=== PATIENT | female | born 1995 | race Caucasian/White ===

== ENCOUNTER 2020-11-05 18:32 | Emergency (ER) | payer OTHER, SELFPAY ==
--- NOTE | ~2020-11-05 | XR_ITS ---
EXAMINATION: XR LUMBOSACRAL SPINE CLINICAL INFORMATION: Left lower back pain and leg pain COMPARISON: None TECHNIQUE: Three views of the lumbosacral spine. FINDINGS: There is straightening of the lumbar spine. Disc spaces are well preserved. Vertebral heights are maintained. No fractures or listhesis is are seen. There is partial lumbarization of S1, especially on the left. XR/XR lumbar spine 2-3V IMPRESSION: Unremarkable examination aside from straightening of the lumbosacral spine.
[2020-11-05 19:06] VITALS: BP 132/90; PULSE 69; RESP 18; TEMP 36.1; O2SAT 98; BMI 20.9
[2020-11-05 20:46] VITALS: BP 140/94; PULSE 63; RESP 16; TEMP 37; O2SAT 99
--- NOTE | 2020-11-05 21:09 | ED.BACK ---
HPI - Back Pain/Injury General Chief Complaint: Extremity Problem Stated Complaint: multiple complaints Time Seen by Provider: 11/05/20 21:08 Source: patient Mode of arrival: ambulatory Limitations: no limitations History of Present Illness HPI Narrative: Patient noticed left lower back pain 3 months ago started gradually no injury pain shoots to the left thigh with some tingling sometimes no weakness no relation with bending forward get worse on hip flexion. Seen PCP and other doctors prescribed prednisone. Without much relief no history of arthritis no other joint pain no history of trauma that patient had epidural 6 months ago Related Data Previous Rx's Medication Instructions Recorded cyclobenzaprine 10 mg tablet 10 mg PO Q8H #20 tab 11/05/20 ibuprofen 600 mg tablet 600 mg PO Q6H PRN #20 tab 11/05/20 Allergies Allergy/AdvReac Type Severity Reaction Status Date / Time No Known Allergies Allergy Verified 11/05/20 19:12 Review of Systems Review of Systems: Yes all other systems are reviewed and are negative PMFSH Past Medical History Medical History Asthma Social History Social History Advance Directives: No Advance Directives Information Provided: No Patient : No Physical Exam Vital Signs: Vital Signs: Last Vital Signs Temp 98.6 F 11/05/20 20:46 Pulse 63 11/05/20 20:46 Resp 16 11/05/20 20:46 BP 140/94 H 11/05/20 20:46 Pulse Ox 99 11/05/20 20:46 Body Mass Index 20.9 Const: General: comfortable, no acute distress and well developed Orientation/consciousness: patient oriented x3 HENMT: Head: Yes normocephalic and Yes atraumatic Neck: Neck: Yes normal visual inspection, Yes full ROM and No tender Resp: Effort & Inspection: normal respiratory effort Auscultation: clear to auscultation bilaterally Cardio: Rate: regular rate Rhythm: regular rhythm GI: Inspection: Yes normal to inspection Palpation (GI): Soft to palpation and nontender : General: Yes no CVA tenderness Back/Spine/Pelvis: Back: no CVA tenderness Thoracic/Lumbar Spine: straight leg raise negative bilaterally, No thoracic spinal tenderness, No lumbar spinal tenderness and other (Left sciatic notch tenderness+) Neuro: General: patient oriented x3 and no focal motor deficits MDM - Back Pain/Injury MDM Narrative Medical decision making narrative: Patient's symptoms matching piriformis muscle syndrome. Will treat with muscle relaxant and ibuprofen lumbar x-ray negative Discharge Plan Discharge Clinical Impression: Piriformis muscle pain Patient Disposition: Home, Self-Care Instructions: Piriformis Syndrome (ED), Lower Back Exercises (ED) Additional Instructions: Take pain medication muscle relaxers and advised Do exercises like pelvic rock and abduction exercises Follow with PCP Prescriptions: New cyclobenzaprine 10 mg tablet 10 mg PO Q8H Qty: 20 RF: 0 ibuprofen 600 mg tablet 600 mg PO Q6H PRN (Reason: pain) Qty: 20 RF: 0
[2020-11-05] MEDS: traMADoL HCL 50 MG TABLET PO (21:41)
[2020-11-05] MEDS: Cyclobenzaprine HCl 10 MG TABLET PO (21:41)
== END 2020-11-05 21:44 | disposition home or self-care (01) ==
PROVIDERS: Emergency Provider Internal Medicine
DX: M79.18 Myalgia, other site (principal)
CPT/HCPCS: 72100; 99283; 99284

== ENCOUNTER 2021-10-20 21:16 | Emergency (ER) | payer OTHER, SELFPAY ==
--- NOTE | ~2021-10-20 | CT_ITS ---
EXAMINATION: CT LUMBAR SPINE WITHOUT CONTRAST CLINICAL INFORMATION: Upper leg weakness. COMPARISON: None TECHNIQUE: Multidetector CT imaging of the lumbar spine was performed without the use of intravenous contrast. Coronal and sagittal reformats are reviewed. This CT examination was performed using dose optimization techniques as appropriate, variously including the following: *Automated exposure control *Adjustment of mA and/or kV according to patient size (this includes techniques or standardized protocols for targeted exams where dose is matched to indication/reason for exam; i.e. extremities or head) *Use of iterative reconstruction technique DLP; 363 mGy-cm FINDINGS: No acute fracture or traumatic malalignment. Minimal levoconvex lumbar curvature, possibly scoliosis versus related to patient positioning. Vertebral body heights maintained. Spinal levels: T12-L1: Normal. L1-L4: Small diffuse disc bulge. No significant osseous encroachment of the central canal or neural foramina. L4-L5: Moderate broad-based posterior disc protrusion. No significant osseous encroachment of the central canal or neural foramina. L5-S1: Mild loss of disc space height associated with a posterior disc herniation, possibly with superimposed posterior central extrusion. There is at least mild bilateral neural foraminal narrowing. Paraspinal soft tissues unremarkable. Imaged viscera are unremarkable. CT/CT lumbar spine wo con IMPRESSION: * No acute fracture or traumatic malalignment. * Lumbar spondylosis with disc herniations as described. * There is at least mild bilateral foraminal narrowing at L5-S1.
[2021-10-20 22:44] VITALS: BP 132/88; PULSE 86; RESP 16; TEMP 36.6; O2SAT 96
[2021-10-21] MEDS: Acetaminophen 325 MG TABLET 975 MG PO (03:05)
[2021-10-21 03:29] LABS: Appearance Urine CLEAR; Color Urine YELLOW; Glucose Urine UA NEG (NEG); Leukocyte Esterase Urine NEG (NEG); Nitrite Urine NEG (NEG); Specific Gravity - Urine 1.015 (1.005-1.025); Urine Blood NEG (NEG); Urine Ketones 15 MG/DL (NEG); Urine Protein NEG (NEG-TRACE)
[2021-10-21 04:10] VITALS: BP 94/63; PULSE 66; RESP 18; O2SAT 98
--- NOTE | 2021-10-21 06:01 | PC.NURSE ---
I assumed nursing care of shivani upon her arrival to bed 14 from the waiting room. SHe arrives for evaluation of 2 days worth of severe L hip/L buttock pain. Shivani is alert and oriented x 3, calm and cooperative, makes eye contact with RN. At times she is tearful due to the severity of the left hip pain that she presents with. Respirations are non-labored, RR WNL, room air sat's WNL, she speaks in full sentences, no cyanosis. No nausea. No vomiting. No changes in her bowel or bladder patterns. On arrival pt was tearful due to pain. I administered 975mg PO Tylenol per request Dr. Sánchez. The pt was able to sleep after taking Tylenol but has since woken with c/o increasing L hip pain. She denies any injury, denies any Hx of similar pain, denies any deformity or rash or bruise or discoloration to L hip. Shivani ambulated to the bathroom with an obvious limp, but was steady. She continue to await initial MD avila.
--- NOTE | 2021-10-21 06:25 | ED.GENADULT ---
HPI - General Adult General Chief complaint: Extremity Problem Stated complaint: pain in kidney, trouble standing Time Seen by Provider: 10/21/21 06:19 Source: patient Mode of arrival: ambulatory Limitations: no limitations History of Present Illness HPI narrative: Patient comes to the emergency room complaining of acute on chronic left leg pain. Patient states that she was recently seen at [facility], was diagnosed with fluid in the kidney via ultrasound, then patient followed up at [facility] for left lower quadrant pain, an ultrasound was repeated and the ultrasound was negative. Patient states that she was discharged home yesterday, since then she has been having acute on chronic left-sided hip pain that radiates towards the back of the leg. Patient has been seen in the past approximately a year ago for the same issue. Patient states that her PCP has recommended physical therapy but patient has missed all of the appointments. Patient denies abdominal pain, no numbness or tingling in the line. Patient able to ambulate. Patient denies urinary/fecal incontinence or retention. Related Data Previous Rx's Medication Instructions Recorded cyclobenzaprine 10 mg tablet 10 mg PO Q8H #20 tabs 11/05/20 ibuprofen 600 mg tablet 600 mg PO Q6H PRN pain #20 tabs 11/05/20 cyclobenzaprine 5 mg tablet 5 mg PO TID PRN muscle spasm #10 10/21/21 tabs ibuprofen 600 mg tablet 600 mg PO TID PRN pain #20 tabs 10/21/21 Allergies Allergy/AdvReac Type Severity Reaction Status Date / Time No Known Allergies Allergy Verified 11/05/20 19:12 Review of Systems Review of Systems: Constitutional : No Weight loss, No Fever, No Chills, No Night Sweats, No Fatigue, No Malaise ENT/Mouth : No Hearing loss, No Ear Pain, No Nasal Congestion, No Sinus Pain, No Hoarseness, No sore throat, No Rhinorrhea, No Swallowing Difficulty Eyes: No Eye Pain, No Swelling, No Redness, No Foreign Body, No Discharge, No Vision Changes Cardiovascular : No Chest Pain, No SOB, No Dyspnea on Exertion, No Orthopnea, No Edema, No Palpitations Respiratory : No Cough, No Sputum, No Wheezing, No Smoke Exposure, No Dyspnea Gastrointestinal : No Nausea, No Vomiting, No Diarrhea, No Constipation, No abdominal Pain, No Hematochezia, No Melena Genitourinary : no irregular bleeding, No Dysuria, No Urinary Frequency, No Hematuria, No Urinary Incontinence, No Urgency, No Flank Pain, No Urinary Flow Changes, No Hesitancy Musculoskeletal : No joint pain, No Myalgias, No Joint Swelling, acute on chronic lateral left leg pain, as well as pain radiating from the middle of the left buttocks down the left leg. Skin : No Skin Lesions, No rash Neuro : No Weakness, No Numbness, No Paresthesias, No Loss of Consciousness, No Dizziness, No Headache Psych : No Anxiety/Panic, No Depression, No SI/HI/AH/VH, No Social Issues, Heme/Lymph: No Bruising, No Bleeding,No Lymphadenopathy Endocrine : No Polyuria, No Polydipsia, No Temperature Intolerance [facility] Past Medical History Medical History Asthma Social History Social History Alcohol intake: current Use of substances other than those prescribed or required for medical reasons: No Advance Directives: No Advance Directives Information Provided: Yes Physical Exam ED Vital Signs: Vital Signs - 24 hr 10/20/21 22:44 10/21/21 04:10 Temperature 98 F Pulse Rate 86 66 Respiratory Rate 16 18 Blood Pressure 132/88 94/63 Pulse Oximetry 96 98 Oxygen Delivery Method Room Air Room Air BMI result Body Mass Index 20.0 Const Other: Appearance: Alert. Oriented X3. No acute distress. Seems uncomfortable Eyes: Pupils equal, round and reactive to light. ENT: Pharynx normal. Neck: Normal inspection. Neck supple. No lymph nodes noted. No crepitus CVS: Normal heart rate and rhythm. Pulses normal. Normal S1 and S2 Respiratory: No respiratory distress. Breath sounds normal. No Wheezing. No rales Abdomen: Soft and nontender. No rigidity. No distention. Skin: Skin warm and dry. Normal skin color. Normal skin turgor. Extremities: No lower extremity edema. No Lacerations. No Rash good leg strength, patient able to walk, strength 5/5 bilaterally, pain to palpation over the IT band on the left side Neuro: Oriented X 3. No motor deficit. No sensory deficit. Moving all extremities. No slurred speech. CN 2 through 12 grossly intact Psych: calm, cooperative, normal affect Course Course Course Narrative: Patient has been dealing with this issue for approximately a year now. Patient states that she has not had any kind of imaging other than x-rays approximately year ago. Today, we will go ahead and order a CT scan. Urinalysis negative I discussed the CT with the patient, no acute findings. Patient was given 1 dose of IM Toradol. Medical Decision Making Lab Data Labs: Lab Results 10/21/21 10/21/21 Range/Units 03:23 03:23 Urine Color YELLOW Urine Appearance CLEAR Urine pH 7.0 (5.0-8.0) Ur Specific [place] 1.015 (1.005-1.025) Urine Protein NEG (NEG-TRACE) MG/DL Urine Glucose (UA) NEG (NEG) MG/DL Urine Ketones 15 (NEG) MG/DL Urine Blood NEG (NEG) Urine Nitrite NEG (NEG) Ur Leukocyte Esterase NEG (NEG) Urine Test NEGATIVE (NEGATIVE) Imaging Data Lumbar CT: Radiologist's impression: FINDINGS: No acute fracture or traumatic malalignment. Minimal levoconvex lumbar curvature, possibly scoliosis versus related to patient positioning. Vertebral body heights maintained.? Spinal levels: T12-L1: Normal.? L1-L4: Small diffuse disc bulge. No significant osseous encroachment of the central canal or neural foramina.? L4-L5: Moderate broad-based posterior disc protrusion. No significant osseous encroachment of the central canal or neural foramina.? L5-S1: Mild loss of disc space height associated with a posterior disc herniation, possibly with superimposed posterior central extrusion. There is at least mild bilateral neural foraminal narrowing. Paraspinal soft tissues unremarkable. Imaged viscera are unremarkable. CT/CT lumbar spine wo con IMPRESSION: *? No acute fracture or traumatic malalignment. *? Lumbar spondylosis with disc herniations as described. *? There is at least mild bilateral foraminal narrowing at L5-S1.? Discharge Plan Discharge Clinical Impression: Piriformis muscle pain, Iliotibial band syndrome Patient Disposition: Home, Self-Care Instructions: Musculoskeletal Pain (ED) Additional Instructions: Please follow-up with your primary care physician tomorrow. You will likely need physical therapy. If you have any worsening or new symptoms, please return to the emergency room or call 911 Prescriptions: New ibuprofen 600 mg tablet 600 mg PO TID PRN (Reason: pain) Qty: 20 0RF cyclobenzaprine 5 mg tablet 5 mg PO TID PRN (Reason: muscle spasm) Qty: 10 0RF No Action cyclobenzaprine 10 mg tablet 10 mg PO Q8H Qty: 20 0RF ibuprofen 600 mg tablet 600 mg PO Q6H PRN (Reason: pain) Qty: 20 0RF
[2021-10-21] MEDS: Ketorolac Tromethamine 60 MG/2 ML VIAL IM (06:37)
[2021-10-21 06:42] LABS: UPreg QC Valid YES; Urine Pregnancy NEGATIVE (NEGATIVE)
[2021-10-21 07:49] VITALS: BP 101/63; PULSE 58; RESP 14; TEMP 36.6; O2SAT 98
== END 2021-10-21 08:13 | disposition home or self-care (01) ==
PROVIDERS: Emergency Provider Emergency Medicine
DX: G57.02 Lesion of sciatic nerve, left lower limb (principal); M76.32 Iliotibial band syndrome, left leg; M25.552 Pain in left hip; M79.18 Myalgia, other site
CPT/HCPCS: 72131; 81003; 81025; 96372; 99284; J1885